=== PATIENT | female | born 1955 | race Caucasian/White ===

== ENCOUNTER → 2020-11-08 14:23 | Outpatient (POV) | payer MEDICARE, OTHER, SELFPAY | PROVIDERS: Visit Provider Dermatology | DX: Z00.00 Encounter for general adult medical examination without abnormal findings (principal) ==

== ENCOUNTER → 2020-11-15 10:19 | Outpatient (POV) | payer MEDICARE, OTHER, SELFPAY | PROVIDERS: Visit Provider Dermatology | DX: Z00.00 Encounter for general adult medical examination without abnormal findings (principal) ==

== ENCOUNTER 2023-04-27 14:42 | Emergency (ER) | payer MEDICARE, OTHER, SELFPAY ==
[2023-04-27 14:51] VITALS: BP 144/76; PULSE 75; RESP 18; TEMP 36.6; O2SAT 97; BMI 36.6
--- NOTE | 2023-04-27 14:58 | XR_ITS ---
PROCEDURE INFORMATION: Exam: XR Right Knee Exam date and time: 04/27/2023 2:55 PM Age: 68 years old Clinical indication: Injury or trauma; Other: Twisted heard pop; Sprain or strain; Patella or knee; Right; Additional info: Was playing basketball w grandson and heard a pop TECHNIQUE: Imaging protocol: Radiologic exam of the right knee. Views: 3 views. Total images: 3 COMPARISON: No relevant prior studies available. FINDINGS: Bones/joints: No evidence of acute fracture or dislocation. There are mild degenerative changes of the knee joint, predominantly involving the medial joint compartment. Soft tissues: Soft tissues are within normal limits. IMPRESSION: 1. No evidence of acute fracture or dislocation. 2. There are mild degenerative changes of the knee joint, predominantly involving the medial joint compartment.
[2023-04-27 15:13] VITALS: BP 144/76; PULSE 75; RESP 18; TEMP 36.6; O2SAT 97; BMI 36.8
--- NOTE | 2023-04-27 15:49 | EXP.UTC ---
Discharge Plan Disposition Patient Disposition: Home, Self-Care Condition: Good Prescriptions Prescriptions: No Action atorvastatin 20 mg tablet 20 mg PO DAILY lisinopril 20 mg tablet 20 mg PO DAILY alendronate 70 mg tablet 70 mg PO WEEKLY diclofenac sodium 75 mg tablet,delayed release (DR/EC) 75 mg PO DAILY montelukast 10 mg tablet 10 mg PO DAILY leflunomide 10 mg Tablet 10 mg PO DAILY Referrals Follow up/Referrals: Marta Vieira APRN [Primary Care Provider] - See instructions Activity Restrictions/Add. Instructions Additional Instructions/Restrictions: Weight bearing as tolerated rest Ice with cold pack for 20 minutes remove may repeat for comfort every hour Cy wrap for support and swelling no less in the shower. Be sure not too tight but not to lose either Elevate leg as much as possible to help reduce swelling and therefore pain If improving any do not need to follow-up you can bring begin exercising 2-3 weeks after injury. Follow-up immediately if new or worsening symptoms or no noticeable improvement over the next 3-5 days. call ortho follow up with pcp for more testing and work up Clinical Impressions Clinical Impression: Acute knee pain Instructions Patient Instructions: DI for Knee Pain Discharge ED Provider: Tiffanie ([facility])Katy [facility] [place], [place] HPI General Stated complaint: AO@home 04/27 RT foot pain Mode of Arrival: Ambulatory Source of Information: Patient Limitations: No Limitations Time Seen by Provider: 04/27/23 15:49 Description of Symptoms (Recalled from Triage Doc. by RN): Was playing basketball with her grandson. She went to push off to go get the ball and she heard and felt a pop. This happened today around 1230. HEENT Symptoms (Recalled from RN notes): No Resp Symptoms (Recalled from RN notes): No Skin Symptoms (Recalled from RN notes): No MS Symptoms (Recalled from RN notes): Yes Functional Status (Recalled from RN notes): n/a History of Present Illness Provider Complaint: 68 yr old female presents for rt knee pain. Pt states was playing basketball with her grandson. She went to push off to go get the ball and she heard and felt a pop in knee. This happened today around 1230. Related Data Home Medications Medication Instructions Recorded Confirmed alendronate 70 mg tablet 70 mg PO WEEKLY . 04/27/23 04/27/23 atorvastatin 20 mg tablet 20 mg PO DAILY . 04/27/23 04/27/23 diclofenac sodium 75 mg 75 mg PO DAILY . 04/27/23 04/27/23 tablet,delayed release leflunomide 10 mg tablet 10 mg PO DAILY RA 04/27/23 04/27/23 lisinopril 20 mg tablet 20 mg PO DAILY . 04/27/23 04/27/23 montelukast 10 mg tablet 10 mg PO DAILY . 04/27/23 04/27/23 Allergies Allergy/AdvReac Type Severity Reaction Status Date / Time No Known Allergies Allergy Verified 04/27/23 15:16 Worker's Comp Is this a Worker's Comp case?: No [facility] Disclaimer: The information contained in this section may have been updated after the patient was seen, as this information can be updated by other users. 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
[2023-04-27 16:19] VITALS: BP 144/76; PULSE 75; RESP 18; TEMP 36.6; O2SAT 97
== END 2023-04-27 16:18 | disposition home or self-care (01) ==
PROVIDERS: Emergency Provider Nurse Practitioner Family; PCP Nurse Practitioner Family
DX: M25.561 Pain in right knee (principal); X50.1XXA Overexertion from prolonged static or awkward postures, initial encounter; I10 Essential (primary) hypertension; E78.5 Hyperlipidemia, unspecified
CPT/HCPCS: 73562; 99204; 99212; G0463

== ENCOUNTER → 2023-05-20 12:37 | Outpatient (CLI) | payer MEDICARE, OTHER, SELFPAY ==
--- NOTE | 2023-05-20 12:42 | MR_ITS ---
FINAL REPORT CLINICAL HISTORY: LOW BACK PAIN, NO INJURY FINDINGS: Multiplanar MR imaging of the lumbar spine was performed without contrast. On the sagittal T2-weighted images, decreased signal is seen throughout. There is moderate loss of disc space height at L5-S1. The vertebral alignment is normal. There is no evidence of fracture. No bony mass is identified. The conus is seen at approximately the L1 level and has an unremarkable appearance. L1-2: There is no significant canal stenosis or neural foraminal narrowing. L2-3: There is no significant canal stenosis or neural foraminal narrowing. L3-4: Mild disc bulge with mild bilateral neural foraminal narrowing. L4-5: Moderate diffuse disc bulge with broad-based midline disc protrusion. There is moderate right and moderate to high-grade left neural foraminal narrowing. There is mild central canal stenosis. L5-S1: Diffuse disc bulge with endplate hypertrophy. There is moderate right and moderate to high-grade left neural foraminal narrowing. IMPRESSION: Diffuse changes of degenerative disc disease with moderate to high-grade left L4-5 and L5-S1 neural foraminal narrowing. Reviewed, Interpreted and Dictated by Newton Limon MD Transcribed by Blanca Mayer Authenticated and [facility]
== END ==
PROVIDERS: PCP Nurse Practitioner Family; Visit Provider Orthopaedic Surgery
DX: M54.50 Low back pain, unspecified (principal)
CPT/HCPCS: 72148; 76376

== ENCOUNTER 2023-05-27 09:00 | Outpatient (RCR) | payer MEDICARE, OTHER, SELFPAY | END 2023-06-28 10:25 | disposition home or self-care (01) | LOC: PT 09:00 | PROVIDERS: PCP Nurse Practitioner Family; Visit Provider Nurse Practitioner Family | DX: M25.561 Pain in right knee (principal) | CPT/HCPCS: 97010; 97014; 97035; 97110; 97163; 97530; G0283 ==

== ENCOUNTER 2023-10-30 08:00 | Outpatient (RCR) | payer MEDICARE, OTHER, SELFPAY | END 2023-11-28 09:55 | disposition home or self-care (01) | LOC: PT 08:00 | PROVIDERS: PCP Nurse Practitioner Family; Visit Provider Orthopaedic Surgery Adult Reconstructive Orthopaedic Surgery | DX: M25.561 Pain in right knee (principal); S83.241D Other tear of medial meniscus, current injury, right knee, subsequent encounter | CPT/HCPCS: 97010; 97014; 97035; 97110; 97163; 97530; G0283 ==

== ENCOUNTER 2024-10-30 14:06 | Observation (INO) | payer MEDICARE, OTHER, SELFPAY ==
[2024-10-30] VITALS (12 sets, daily range): BP systolic 110–147; BP diastolic 60–83; PULSE 70–85; RESP 12–20; TEMP 36.7; O2SAT 92–99; BMI 32.9
--- NOTE | 2024-10-30 14:10 | ECG_ITS ---
APPROVED REPORT Exam: Resting ECG HR:79 bpm ECG Measurements Heart Rate 79 AXES SD 149 P 72 QRSd 93 QRS -5 QT 390 T 71 QTc 425 Conclusion SINUS RHYTHM NORMAL ECG Electronically signed by : MARYELLEN MANDUJANO, 10/31/2024 17:27:22
--- NOTE | 2024-10-30 14:26 | ED_ITS ---
<Statement entered by Davie Garcia DO - 11/01/24 12:48> I discussed this patient in detail with the PA. Agree with plan. Patient was seen by PA only. Discharge Plan Disposition Patient Disposition: Admitted Condition: Fair Clinical Impressions Clinical Impression: Acute kidney injury superimposed on stage 3b chronic kidney disease Urinary tract infectious disease Qualifiers: Urinary tract infection type: site unspecified Hematuria presence: with hematuria Qualified Code(s): N39.0 - Urinary tract infection, site not specified Discharge ED Provider: Davie Garcia HPI General Chief Complaint: Chest Pain Stated Complaint: Chest Pain Time Seen by Provider: 10/30/24 14:26 Mode of Arrival: Ambulatory Source of Information: Patient Limitations: No Limitations Description of Symptoms (Recalled from ER Triage Doc. by RN): Patient reports increased shortness of breath and chest pressure for 3-4 days. States that she has also had some increased weakness. History of Present Illness HPI narrative: Patient presents for evaluation of chest plain along with other complaints. Patient gives a 4-day history of chest pressure that she describes as her bilateral neck, malaise, not feeling well but no specific shortness of breath fever chills hemoptysis hematochezia melena nausea vomiting or diarrhea. Patient has a history of hypertension hyperlipidemia and rheumatoid arthritis on a DMM drug that she cannot recall. Related Data Home Medications ?Medication ?Instructions ?Recorded ?Confirmed alendronate 70 mg tablet 70 mg PO WEEKLY . 04/27/23 04/27/23 atorvastatin 20 mg tablet 20 mg PO DAILY . 04/27/23 04/27/23 diclofenac sodium 75 mg 75 mg PO DAILY . 04/27/23 04/27/23 tablet,delayed release leflunomide 10 mg tablet 10 mg PO DAILY RA 04/27/23 04/27/23 lisinopril 20 mg tablet 20 mg PO DAILY . 04/27/23 04/27/23 montelukast 10 mg tablet 10 mg PO DAILY . 04/27/23 04/27/23 Allergies Allergy/AdvReac Type Severity Reaction Status Date / Time IV Contrast Allergy Anaphylaxis Uncoded 10/30/24 16:28 [facility] Disclaimer: The information contained in this section may have been updated after the patient was seen, as this information can be updated by other users. 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) Tubal ligation status Social History (Updated 04/27/23 @ 15:57 by [facility] LUMBER CHECKER) Smoking Status: Never smoker alcohol intake: never current occupational status: retired ROS Obtained: Yes Systems reviewed as appropriate & no additional complaints except as documented Physical Exam General General appearance: alert and in no apparent distress Respiratory Respiratory exam: Present normal lung sounds bilaterally Cardiovascular Cardiovascular exam: Present regular rate Neurological Exam Neurological exam: Present alert and oriented X3 HEART Score HEART Score HEART Score assessment performed?: No History (anamnesis): Slightly suspicious ECG: Non-specific disturbance Age: >65 years Risk factors: 3 or more risk factors Troponin: </= normal limit HEART Score: 5 Critical Care Critical Care Time Critical Care Time: No Medical Decision Making Medical Records Medical records reviewed: Yes I reviewed the patient's medical records. Ruben Inquiry Pt receiving controlled substance: No Vital Signs Vital Signs: 10/30/24 14:06 10/30/24 14:30 10/30/24 15:30 Temperature 98.0 F Temperature Source Oral Pulse Rate 74 70 Pulse Rate [Radial] 85 Respiratory Rate 20 12 Blood Pressure 110/66 113/60 Blood Pressure [Right Arm] 128/82 Blood Pressure Mean 87 77 Blood Pressure Mean [Right Arm] 97 Blood Pressure Source [Right Arm] Automatic Cuff Blood Pressure Position [Right Arm] Sitting 02 Sat by Pulse Oximetry 99 99 93 L Oxygen Delivery Method Room Air 10/30/24 16:00 10/30/24 16:31 10/30/24 17:00 Temperature Temperature Source Pulse Rate 70 82 77 Pulse Rate [Radial] Respiratory Rate 18 15 13 Blood Pressure 130/65 143/77 H 147/83 H Blood Pressure [Right Arm] Blood Pressure Mean 77 99 95 Blood Pressure Mean [Right Arm] Blood Pressure Source [Right Arm] Blood Pressure Position [Right Arm] 02 Sat by Pulse Oximetry 93 L 95 97 Oxygen Delivery Method 10/30/24 18:16 Temperature 98.0 F Temperature Source Oral Pulse Rate 74 Pulse Rate [Radial] Respiratory Rate 16 Blood Pressure 136/72 Blood Pressure [Right Arm] Blood Pressure Mean Blood Pressure Mean [Right Arm] Blood Pressure Source [Right Arm] Blood Pressure Position [Right Arm] 02 Sat by Pulse Oximetry Oxygen Delivery Method Room Air Lab Data Lab results reviewed: Yes I reviewed the patient's lab results. Labs: Lab Results 10/30/24 14:10: WBC 8.0, RBC 4.41, Hgb 13.1, Hct 37.8, MCV 85.6, MCH 29.7, MCHC 34.7, RDW 14.1, Plt Count 401, MPV 7.3 L, Neut % (Auto) 51.1, Lymph % (Auto) 20.4, Trimble % (Auto) 5.6, Eos % (Auto) 21.8 H, Baso % (Auto) 1.1, Neut # (Auto) 4.1, Lymph # (Auto) 1.6, Trimble # (Auto) 0.5, Eos # (Auto) 1.7 H, Baso # (Auto) 0.1, Sodium 140, Potassium 3.0 L, Chloride 107, Carbon Dioxide 24, Anion Gap 12.0, BUN 31 H, Creatinine 1.90 H, Estimated Creat Clear 35, Estimated GFR 26 L, Est GFR ( Amer) 32 L, Glucose 101 H, Calcium 9.1, Total Bilirubin 0.9, AST 25, ALT 15, Alkaline Phosphatase 79, Troponin I < 0.01, NT-Pro-B Natriuret Pep 107, Total Protein 7.8, Albumin 4.4, Globulin 3.4 H, Albumin/Globulin Ratio 1.3, HIV 1&2 Antibody Rapid Nonreactive 10/30/24 14:39: D-Dimer 2.20 H, NT-Pro-B Natriuret Pep 117, Procalcitonin 0.070 10/30/24 14:41: SARS-CoV-2 (PCR) Not detected, Influenza A Untype (PCR) Not detected, Influenza Type B (PCR) Not detected 10/30/24 17:33: Urine Color Yellow, Urine Appearance Clear, Urine pH 6.0, Ur Specific Kemp 1.015, Urine Protein Negative, Urine Glucose (UA) Negative, Urine Ketones Negative, Urine Blood Negative, Urine Nitrate Negative, Urine Bilirubin Negative, Urine Urobilinogen 0.2, Ur Leukocyte Esterase Trace, Urine RBC 3-5, Urine WBC 20-50, Ur Squamous Epith Cells 5-10, Ur Transition Epith Cell 3-5, Ur Renal Epithelial Cell 10-20, Urine Bacteria 2+ 10/30/24 18:00: Sodium 144, Potassium 3.2 L, Chloride 113 H, Carbon Dioxide 16 L , Anion Gap 18.2 H, BUN 33 H, Creatinine 2.00 H, Estimated Creat Clear 33, E stimated GFR 25 L, Est GFR ( Amer) 30 L, Glucose 104 H, Calcium 9.6, Troponin I < 0.01 10/30/24 14:10 10/30/24 18:00 Response Orders (Tests/Meds): ED MEDICATIONS Generic Name Dose Route Start Last Admin Trade Name Freq PRN Reason Stop Dose Admin Acetaminophen 650 mg 10/30/24 19:08 Acetaminophen 325mg Tab PO 11/29/24 19:07 Q4HP PRN Fever or Mild Pain (1-3) Enoxaparin Sodium 30 mg 10/31/24 09:00 Enoxaparin 40mg/0.4ml Syringe SUBCUT 11/30/24 08:59 DAILY SHANIQUE Sodium Chloride 1,000 mls @ 999 mls/hr 10/30/24 18:31 10/30/24 18:32 Sod Chlor 0.9% 1000ml Bag IV 10/30/24 19:31 999 mls/hr .Q1H1M ONE Administration Ceftriaxone Sodium 1 gm/ 50 mls @ 100 mls/hr 10/31/24 09:00 Sodium Chloride IV 11/10/24 08:59 Q24H SHANIQUE Ondansetron HCl 4 mg 10/30/24 19:08 Ondansetron 4mg/2ml Vial IV 11/29/24 19:07 Q8HP PRN Nausea Discontinued Medications Generic Name Dose Route Start Last Admin Trade Name Freq PRN Reason Stop Dose Admin Acetaminophen 1,000 mg 10/30/24 14:31 10/30/24 14:46 Acetaminophen 500mg Tab PO 10/30/24 14:32 1,000 mg ONCE ONE Administration Belladonna Alkaloids 60 ml 10/30/24 14:31 10/30/24 14:46 Belladonna Alkaloids 60 Ml Ml PO 10/30/24 14:32 60 ml ONCE ONE Administration Diphenhydramine HCl 50 mg 10/30/24 15:50 10/30/24 16:03 Diphenhydramine 50mg/Ml Vial IV 10/30/24 15:51 50 mg ONCE ONE Administration Potassium Chloride/Water 100 mls @ 50 mls/hr 10/30/24 15:03 10/30/24 18:25 Potassium Chloride 20meq/100ml Ivpb IV 10/30/24 19:02 50 mls/hr Q2H SHANIQUE Administration Sodium Chloride 1,000 mls @ 999 mls/hr 10/30/24 15:15 10/30/24 15:34 Sod Chlor 0.9% 1000ml Bag IV 10/30/24 16:15 999 mls/hr .Q1H1M ONE Administration Iopamidol 75 ml 10/30/24 17:27 10/30/24 17:27 Iopamidol-370 (76%);100ml Bottle IV 10/30/24 17:28 75 ml ONCE ONE Administration Ketorolac Tromethamine 15 mg 10/30/24 14:31 10/30/24 14:46 Ketorolac 30mg/Ml Vial IV 10/30/24 14:32 15 mg ONCE ONE Administration Methylprednisolone Sodium Succinate 125 mg 10/30/24 15:50 10/30/24 16:03 Methylprednisolone Sod Succ 125mg Vial IV 10/30/24 15:51 125 mg ONCE ONE Administration Ondansetron HCl 4 mg 10/30/24 14:31 10/30/24 14:46 Ondansetron 4mg Odt SL 10/30/24 14:32 4 mg ONCE ONE Administration Potassium Chloride 40 meq 10/30/24 15:03 10/30/24 15:09 Potassium Chloride 20meq Tab PO 10/30/24 15:04 40 meq ONCE ONE Administration Sodium Chloride 10 ml 10/30/24 17:27 10/30/24 17:27 Sodium Chloride 0.9% 10ml Syr (Rad Only) IV 10/30/24 17:28 10 ml ONCE ONE Administration Sodium Chloride 50 ml 10/30/24 17:27 10/30/24 17:27 0.9 % Sodium Chloride 50 Ml Vial IV 10/30/24 17:28 50 ml ONCE ONE Administration ORDERS Category Date Time Status CT angio chest PE protocol Stat Cat Scan 10/30/24 15:12 Completed Chest XR 2 view (NOT portable) [XR chest 2V] Stat Exams 10/30/24 14:32 Completed BNP [NT Pro Brain Natriuretic Pep.] Stat Lab 10/30/24 14:10 Completed BNP [NT Pro Brain Natriuretic Pep.] Stat Lab 10/30/24 14:39 Completed CBC w/Auto Diff [Complete Blood Count Auto Diff] Stat Lab 10/30/24 14:10 Completed CMP [Comprehensive Metabolic Panel] Stat Lab 10/30/24 14:10 Completed D-Dimer Stat Lab 10/30/24 14:39 Completed HIV (1&2) Antibody Rapid Stat Lab 10/30/24 14:10 Completed Hep C Ab with Reflex to RNA Stat Lab 10/30/24 14:10 Received Procalcitonin Stat Lab 10/30/24 14:39 Completed Rapid PCR Covid and Flu A/B Stat Lab 10/30/24 14:41 Completed Trop I [Troponin I] Stat Lab 10/30/24 14:10 Completed Troponin I Q3H Lab 10/30/24 18:00 Completed Troponin I Q3H Lab 10/30/24 20:45 Ordered UA [Urinalysis and Microscopic] Stat Lab 10/30/24 17:33 Completed Urine Culture Stat Micro 10/30/24 17:33 Received MDM Narrative Medical Decision Narrative: In summary patient is a 69-year-old female who presents to the emergency department for evaluation of chest pain malaise and feeling generally unwell and weak. Patient is hemodynamically stable upon arrival, afebrile. Physical exam is unremarkable and nonfocal including normal breath sounds normal heart sounds no dependent edema normal sinus rhythm on the bedside monitor satting at 99% on room air with no increased work of breathing or accessory muscle use. Differential diagnosis includes ACS versus PE versus viral or other infectious illness etc. Initial workup will be conducted with hematologic labs D-dimer plain film chest x-ray twelve-lead EKG urinalysis.. Initial interventions include Tylenol Toradol GI cocktail. Initial workup reviewed by me shows a normal white count with no neutrophilic shift and elevated D-dimer of 2.2 CMP is significant for initially a potassium of 3.0 a BUN of 31 creatinine 1.9 with a GFR of 26 with no known baseline initial troponin is less than 0.01 and procalcitonin is normal but detectable at 0.07 and urinalysis shows negative protein negative ketones negative nitrite and trace leukocyte Estrace on dipstick and microscopic exam shows 3-5 red cells 20-50 white cells 5-10 epithelial cells with 10-20 renal epithelial cells and 2+ bacteria indicating a more proximal process and her COVID and flu swabs are negative. My informed interpretation of her plain film chest x-ray shows a questionable nodule in the right upper lung field but no other acute processes and my informal interpretation of her CT PE protocol identifies no thrombus parenchymal consolidations bilaterally prior to radiology read. Upon repeat evaluation patient feels only slightly better after initial interventions. Given this I had an interactive discussion with hospital medicine outpatient management and patient will be admitted for further evaluation and care Of note I reviewed her laboratory results results from on 09/04/2024 show a potassium 3.7 creatinine 1.09 BUN of 27 estimated GFR 54.4
--- NOTE | 2024-10-30 14:32 | XR_ITS ---
FINAL REPORT CLINICAL HISTORY: Chest pain, shortness of breath FINDINGS: PA and lateral views of the chest are obtained. There is no prior exam for comparison. The cardiac and mediastinal silhouettes are within normal limits. The lungs are clear. There is no pleural effusion, pneumothorax, or acute osseous abnormality. IMPRESSION: No radiographic evidence of acute cardiac or pulmonary disease. Reviewed, Interpreted and Dictated by Nanda Delgadillo MD Transcribed by Jolly Jacques Authenticated and [facility]
[2024-10-30 14:44] LABS: Coronavirus 19, PCR Not Detected (NotDetected); Influenza A, PCR Not Detected (NotDetected); Influenza B, PCR Not Detected (NotDetected)
[2024-10-30 14:46] LABS: Basophils # 0.1 K/mm3 (0-0.2); Basophils % 1.1 % (0.1-2.0); Eosinophils # 1.7 K/mm3 (0.0-0.4); Eosinophils % 21.8 % (0.1-12.0); Hematocrit 37.8 % (37.0-47.0); Hemoglobin 13.1 g/dL (12.2-16.2); Lymphocytes # 1.6 K/mm3 (0.7-4.5); Lymphocytes % 20.4 % (10-50); Mean Corpuscular HGB Conc 34.7 g/dL (31.8-35.4); Mean Corpuscular Hemoglobin 29.7 pg (27.0-31.2); Mean Corpuscular Volume 85.6 fl (81-99); Mean Platelet Volume 7.3 fl (7.4-10.4); Monocytes # 0.5 K/mm3 (0.1-1.0); Monocytes % 5.6 % (1.7-9.3); Neutrophils # 4.1 K/mm3 (1.8-7.8); Neutrophils % 51.1 % (37.0-80.0); Platelet Count 401 K/mm3 (142-424); Red Blood Count 4.41 M/mm3 (4.20-5.40); Red Cell Distribution Width 14.1 % (11.5-17.5)
[2024-10-30] MEDS: KETOROLAC 30MG/ML VIAL 15 MG IV (14:46)
[2024-10-30] MEDS: ONDANSETRON 4MG ODT 4 MG SL (14:46)
[2024-10-30] MEDS: BELLADONNA ALKALOIDS 60 ML ML PO (14:46)
[2024-10-30] MEDS: ACETAMINOPHEN 500MG TAB 1000 MG PO (14:46)
[2024-10-30 14:57] LABS: Alanine Aminotransferase 15 U/L (12-78); Albumin Level 4.4 g/dl (3.5-5.0); Albumin/Globulin Ratio 1.3 (1.1-1.8); Alkaline Phosphatase 79 U/L (38-126); Aspartate Amino Transferase 25 U/L (14-36); Bilirubin,Total 0.9 mg/dl (0.2-1.3); Blood Urea Nitrogen 31 mg/dl (7-17); Calcium 9.1 mg/dl (8.4-10.2); Carbon Dioxide 24 mmol/L (22.0-30.0); Chloride 107 mmol/L (98-107); Creatinine Clearance Estimated 35 mL/min (50-200); Estimated Glomerular Filt Rate 26 ml/min (>60); GFR (African American) 32 ML/MIN (>60); Globulin 3.4 g/dL (1.3-3.2); Glucose 101 mg/dl (74-100); Sodium 140 mmol/L (136-145); Total Protein,Serum 7.8 g/dl (6.3-8.2)
[2024-10-30] MEDS: POTASSIUM CHLORIDE 20MEQ TAB 40 MEQ PO (15:09)
[2024-10-30 15:10] LABS: NT Pro Brain Natriuretic Pep. 107 pg/mL (0-125); Troponin I < 0.01 ng/ml (0.00-0.034)
--- NOTE | 2024-10-30 15:12 | CT_ITS ---
PROCEDURE INFORMATION: Exam: CTA Chest With Contrast Exam date and time: 10/30/2024 5:26 PM Age: 69 years old Clinical indication: Other: Chest pain; Additional info: Chest pain elevated d-dimer TECHNIQUE: Imaging protocol: Computed tomographic angiography of the chest with contrast. Exam focused on the arteries. 3D rendering (Not supervised by radiologist): MIP and/or 3D reconstructed images were created by the technologist. Radiation optimization: All CT scans at this facility use at least one of these dose optimization techniques: automated exposure control; mA and/or kV adjustment per patient size (includes targeted exams where dose is matched to clinical indication); or iterative reconstruction. Contrast material: ISO 370; Contrast volume: 70 ml; Contrast route: INTRAVENOUS (IV); COMPARISON: CR XR CHEST 2V 10/30/2024 2:54 PM FINDINGS: Pulmonary arteries: There is no evidence for clinically relevant pulmonary arterial filling defect. Tiny distal filling defects may be present but are of dubious clinical significance. Aorta: There is atherosclerotic disease of the visualized aorta and its major branch vessels. Teeth: There is dental amalgam which causes streak artifact and mildly limits evaluation of the oral cavity. Lungs: There are scattered calcified granulomas in the lungs which most likely reflect prior granulomatous disease. Scattered areas of bronchial wall thickening which are likely chronic inflammatory. A few areas of subpleural reticulation are noted, nonspecific. Parenchymal consolidations at the bases could be on the basis of atelectasis but underlying infection is not completely excluded. Pleural spaces: Unremarkable. No pneumothorax. No pleural effusion. Heart: Unremarkable. No cardiomegaly. No pericardial effusion. Lymph nodes: There are calcified mediastinal lymph nodes likely reflecting prior granulomatous disease. Gallbladder and biliary ducts: There is cholelithiasis within an otherwise normal gallbladder. Spleen: There are multiple calcifications in the spleen most likely reflects small granulomas. Bones/joints: There is diffuse degenerative disease of the visualized osseous structures. Soft tissues: Unremarkable. IMPRESSION: 1. Parenchymal consolidations at the bases could be on the basis of atelectasis but underlying infection is not completely excluded. 2. No evidence for clinically relevant pulmonary arterial filling defect.
[2024-10-30 15:30] LABS: HIV (1&2) Antibody Rapid NONREACTIVE (NONREACTIVE)
[2024-10-30] MEDS: KCl 20mEq/100ml 100 ML 50 MEQ IV ×2 (15:34→18:25)
[2024-10-30] MEDS: 0.9 % SODIUM CHLORIDE 1000ML 1,000 ML 999 ML IV ×2 (15:34→18:32)
[2024-10-30 15:36] LABS: NT Pro Brain Natriuretic Pep. 117 pg/mL (0-125)
[2024-10-30] MEDS: METHYLPREDNISOLONE SOD SUCC 125MG VIAL 125 MG IV (16:03)
[2024-10-30] MEDS: diphenhydrAMINE 50MG/ML VIAL 50 MG IV (16:03)
[2024-10-30] MEDS: 0.9 % SODIUM CHLORIDE 50 ML VIAL IV (17:27)
[2024-10-30] MEDS: IOPAMIDOL-370 (76%);100ML BOTTLE 75 ML IV (17:27)
[2024-10-30] MEDS: SODIUM CHLORIDE 0.9% 10ML SYR (RAD ONLY) 10 ML IV (17:27)
[2024-10-30 17:38] LABS: Appearance,Urine CLEAR (Clear); Bilirubin,Urine Negative (Negative); Blood, Urine Negative (Negative); Color,Urine YELLOW (Yellow); Glucose,Urine (UA) Negative (Negative); Ketones,Urine Negative (Negative); Leukocyte Esterase,Urine TRACE (Negative); Microscopic, Urine URINE MICROSCOPIC (MICROSCOPIC); Nitrate,Urine Negative (Negative); Protein,Urine Negative (Negative); Specific Gravity, Urine 1.015 (1.005-1.030); Urobilinogen,Urine 0.2 EU/dl (0.2)
[2024-10-30 18:06] LABS: WBC,Urine 20-50 #/hpf (0-3)
[2024-10-30 18:07] LABS: Bacteria,Urine 2+ /lpf
--- NOTE | 2024-10-30 18:16 | PC.NURSE ---
Called report to Fernanda Celis RN on Med/Surg
[2024-10-30 18:27] LABS: Chloride 113 mmol/L (98-107); Potassium 3.2 mmoL/L (3.5-5.1); Sodium 144 mmol/L (136-145)
[2024-10-30 18:30] LABS: Anion Gap 18.2 mEq/L (5-15); Carbon Dioxide 16 mmol/L (22.0-30.0)
[2024-10-30 18:31] LABS: Calcium 9.6 mg/dl (8.4-10.2); Glucose 104 mg/dl (74-100)
--- NOTE | 2024-10-30 18:33 | PC.NURSE ---
Per Nicholas Ceballos PAC- Dr. Lamb is reviewing the pt chart and will call him back before admission.
[2024-10-30 18:36] LABS: Blood Urea Nitrogen 33 mg/dl (7-17); Creatinine Clearance Estimated 33 mL/min (50-200); Estimated Glomerular Filt Rate 25 ml/min (>60); GFR (African American) 30 ML/MIN (>60)
[2024-10-30 18:44] LABS: Troponin I < 0.01 ng/ml (0.00-0.034)
--- NOTE | 2024-10-30 18:55 | PC.NURSE ---
Dr. Lamb now states he will accept the pt. I called Fernanda Celis RN and she states we will need to call report to night-shift nurse now despite this RN already having called report @ [phone]
--- NOTE | 2024-10-30 19:18 | PC.NURSE ---
Called report to Tianna Brown RN on Med/Surg
--- NOTE | 2024-10-30 19:57 | PC.NURSE ---
Patient arrived to room 209 by wheelchair at this time.
--- NOTE | 2024-10-30 20:50 | PC.NURSE ---
Dr Lamb was paged at this time to inform him that the patient's admission and home reconciliation was complete. An order for maintenance fluids (sodium chloride 0.45% (1000 mL) at 100 mL/hr) was also obtained.
[2024-10-30 21:12] LABS: Troponin I < 0.01 ng/ml (0.00-0.034)
[2024-10-30 21:29] LABS: Thyroid Stimulating Hormone 0.86 uIU/mL (0.465-4.68)
[2024-10-30] MEDS: SODIUM CHLORIDE 0.45 % 1,000 ML 100 ML IV (21:47)
--- NOTE | 2024-10-30 22:08 | EXP.HP ---
History of Present Illness *Admission Date: 10/30/24 *Reason for visit:: Generalized weakness, poor appetite, PAUL *History of present illness: Vicky Marie is a 69-year-old female with a medical history significant for rheumatoid arthritis, hypertension who presents with progressive generalized weakness, decreased oral intake, and recurrent UTIs over the past month. Patient states she had been treated with amoxicillin and Levaquin over the past 2 weeks for UTIs, with Levaquin ending last Saturday. She continues to have intermittent dysuria, polyuria, generalized weakness. Also endorses flulike symptoms with myalgias, mild productive cough over the past 4 days. Denies constipation/diarrhea, chest pain, fever/chills. Workup in the ED significant for UA highly suggestive of UTI, WBC 8.0, D-dimer 2.2, creatinine 1.9. Negative for COVID-19, flu. CTA suggestive of bibasilar opacities, but negative for PE. Case discussed with ED provider and decision was made to admit patient for worsening generalized weakness, decreased oral intake, PAUL, and possible community-acquired pneumonia. [facility] Disclaimer: The information contained in this section may have been updated after the patient was seen, as this information can be updated by other users. 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 , [employer]) High cholesterol Hypertension Rheumatoid arteritis Surgical History , [employer]) Tubal ligation status Family History (Updated 10/30/24 @ 20:28 by Mary Lopez RN) Mother Cancer Brother Leukemia Father Respiratory distress Social History (Updated 10/30/24 @ 20:27 by Mary Lopez RN) Smoking Status: Never smoker alcohol intake: never current occupational status: retired Other 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 Have you received the Flu Vaccine for this season: Yes Have you received the Pneumonia Vaccine: Yes Meds Home Medications and Allergies Home Medications ?Medication ?Instructions ?Recorded ?Confirmed ?Type alendronate 70 mg tablet 70 mg PO WEEKLY . 04/27/23 10/30/24 History atorvastatin 20 mg tablet 20 mg PO DAILY . 04/27/23 10/30/24 History diclofenac sodium 75 mg 75 mg PO DAILY . 04/27/23 10/30/24 History tablet,delayed release leflunomide 10 mg tablet 10 mg PO DAILY RA 04/27/23 10/30/24 History lisinopril 20 mg tablet 20 mg PO DAILY . 04/27/23 10/30/24 History montelukast 10 mg tablet 10 mg PO DAILY . 04/27/23 10/30/24 History New Prescriptions to Start Prescriptions: Allergies Allergy/AdvReac Type Severity Reaction Status Date / Time IV Contrast Allergy Anaphylaxis Uncoded 10/30/24 16:28 Exam Data for Last 24 hours Vital signs and Labs for Last 24 Hours: Temp Pulse Resp BP Pulse Ox O2 Del Method 98.0 F 73 13 135/69 98 Room Air 10/30/24 18:16 10/30/24 19:30 10/30/24 19:30 10/30/24 19:30 10/30/24 19:30 10/30/24 18:16 Laboratory Results - last 24 hr 10/30/24 14:10: WBC 8.0, RBC 4.41, Hgb 13.1, Hct 37.8, MCV 85.6, MCH 29.7, MCHC 34.7, RDW 14.1, Plt Count 401, MPV 7.3 L, Neut % (Auto) 51.1, Lymph % (Auto) 20.4, [place] % (Auto) 5.6, Eos % (Auto) 21.8 H, Baso % (Auto) 1.1, Neut # (Auto) 4.1, Lymph # (Auto) 1.6, [place] # (Auto) 0.5, Eos # (Auto) 1.7 H, Baso # (Auto) 0.1, Sodium 140, Potassium 3.0 L, Chloride 107, Carbon Dioxide 24, Anion Gap 12.0, BUN 31 H, Creatinine 1.90 H, Estimated Creat Clear 35, Estimated GFR 26 L, Est GFR ( Amer) 32 L, Glucose 101 H, Calcium 9.1, Total Bilirubin 0.9, AST 25, ALT 15, Alkaline Phosphatase 79, Troponin I < 0.01, NT-Pro-B Natriuret Pep 107, Total Protein 7.8, Albumin 4.4, Globulin 3.4 H, Albumin/Globulin Ratio 1.3, HIV 1&2 Antibody Rapid Nonreactive 10/30/24 14:39: D-Dimer 2.20 H, NT-Pro-B Natriuret Pep 117, Procalcitonin 0.070 10/30/24 14:41: SARS-CoV-2 (PCR) Not detected, Influenza A Untype (PCR) Not detected, Influenza Type B (PCR) Not detected 10/30/24 17:33: Urine Color Yellow, Urine Appearance Clear, Urine pH 6.0, Ur Specific [place] 1.015, Urine Protein Negative, Urine Glucose (UA) Negative, Urine Ketones Negative, Urine Blood Negative, Urine Nitrate Negative, Urine Bilirubin Negative, Urine Urobilinogen 0.2, Ur Leukocyte Esterase Trace, Urine RBC 3-5, Urine WBC 20-50, Ur Squamous Epith Cells 5-10, Ur Transition Epith Cell 3-5, Ur Renal Epithelial Cell 10-20, Urine Bacteria 2+ 10/30/24 18:00: Sodium 144, Potassium 3.2 L, Chloride 113 H, Carbon Dioxide 16 L, Anion Gap 18.2 H, BUN 33 H, Creatinine 2.00 H, Estimated Creat Clear 33, Estimated GFR 25 L, Est GFR ( Amer) 30 L, Glucose 104 H, Calcium 9.6, Troponin I < 0.01 10/30/24 20:25: Troponin I < 0.01, TSH 0.86 I & O for Last 24 hours: Intake & Output 10/27/24 10/28/24 10/29/24 10/30/24 23:59 23:59 23:59 23:59 Intake Total 1100 / 1100 Balance 1100 / 1100 Weight 81.647 kg Constitutional Constitutional: no acute distress *Routine HEENT Exam Head: Present normocephalic Eye: Present EOMI and PERRL ENT: Present mucous membranes moist *Routine Neck Exam Neck: Present supple; Absent lymphadenopathy *Routine Respiratory Exam Respiratory: Present CTA bilaterally *Routine Cardiovascular Exam Cardiovascular: Present RRR *Routine Abdominal Exam Abdominal: Present soft and normoactive bowel sounds; Absent tenderness *Routine Rectal Exam Rectal:: deferred *Routine Genitalia Exam Genitalia:: deferred *Routine Extremities Exam Extremities: Absent cyanosis, clubbing or edema *Routine Skin Exam Skin: Present warm; Absent rash *Routine Neurological Exam Neurological: Present alert and oriented X3 Assessment and Plan *Assessment and plan (1) Urinary tract infectious disease: Status: Acute Qualifiers: Hematuria presence: with hematuria Urinary tract infection type: site unspecified Qualified Code(s): N39.0 - Urinary tract infection, site not specified; R31.9 - Hematuria, unspecified Category: Medical Code(s): N39.0 - Urinary tract infection, site not specified (2) Acute kidney injury superimposed on stage 3b chronic kidney disease: Status: Acute Category: Medical Code(s): N17.9 - Acute kidney failure, unspecified; N18.32 - Chronic kidney disease, stage 3b (3) Community acquired pneumonia: Status: Acute Category: Medical Code(s): J18.9 - Pneumonia, unspecified organism (4) Generalized weakness: Status: Acute Category: Medical Code(s): R53.1 - Weakness (5) Rheumatoid arthritis: Status: Acute Category: Medical Code(s): M06.9 - Rheumatoid arthritis, unspecified (6) PAUL (acute kidney injury): Status: Acute Category: Medical Code(s): N17.9 - Acute kidney failure, unspecified Plan Vicky Marie is a 69-year-old female with a medical history significant for rheumatoid arthritis, hypertension who presents with progressive generalized weakness, decreased oral intake, and recurrent UTIs over the past month. Patient states she had been treated with amoxicillin and Levaquin over the past 2 weeks for UTIs, with Levaquin ending last Saturday. She continues to have intermittent dysuria, polyuria, generalized weakness. Also endorses flulike symptoms with myalgias, mild productive cough over the past 4 days. Denies constipation/diarrhea, chest pain, fever/chills. Workup in the ED significant for UA highly suggestive of UTI, WBC 8.0, D-dimer 2.2, creatinine 1.9. Negative for COVID-19, flu. CTA suggestive of bibasilar opacities, but negative for PE. Case discussed with ED provider and decision was made to admit patient for worsening generalized weakness, decreased oral intake, PAUL, and possible community-acquired pneumonia. #Generalized weakness #Decreased p.o. intake #Acute on recurrent UTI #Possible community-acquired pneumonia ? Symptoms have been ongoing for about a month, has been on 2 rounds of antibiotics including amoxicillin and Levaquin without complete alleviation of symptoms. ? Also endorses flulike symptoms with myalgia, mild productive cough over the past 4 days. ? CTA chest reveals bibasilar opacities. ? UA grossly abnormal suggesting UTI. ? Ceftriaxone, azithromycin day 1/5. ? Follow-up urine, blood cultures. ? Follow-up complete respiratory panel. ? Consider referral to urology for recurrent UTIs. ? PT/OT consulted, pending recommendations. #PAUL #High AGAP metabolic acidosis ? Initial creatinine at 1.9, bumped to 2.0 and AGAP 18.2 likely in the setting of post contrast nephropathy and Toradol given in the ED. ? Baseline creatinine 1.09 at on 09/04/2024 per ED provider. ? Likely prerenal hypovolemia in the setting of decreased oral intake. ? Continue NS at 100 mL/h. ? Follow-up renal function in the morning. #Elevated D-dimer ? CTA negative for PE. No signs of lower extremity DVTs. ? May be related to rheumatoid arthritis #Rheumatoid arthritis ? Resume home leflunomide. Hold home diclofenac given PAUL. ? No recent changes in medications to suggest contribution to recent symptoms. #Hypertension ? Hold home lisinopril given PAUL. Full code DVT prophylaxis: Lovenox 30 mg
[2024-10-30] MEDS: AZITHROMYCIN 500 MG in 0.9 % SODIUM CHLORIDE 250 ML 250 MG IV (23:43)
[2024-10-30 23:54] LABS: Adenovirus,PCR Not Detected (NotDetected); Coronovirus HKU1,PCR Not Detected (NotDetected)
[2024-10-30 23:55] LABS: Bordetella Pertussis Not Detected (NotDetected); Chlamydophila Pneumoniae, PCR Not Detected (NotDetected); Coronavirus 19, PCR Not Detected (NotDetected); Coronavirus 229E Not Detected (NotDetected); Coronavirus NL63 Not Detected (NotDetected); Coronavirus OC43 Not Detected (NotDetected); Human Metapneumovirus Not Detected (NotDetected); Influenza A, PCR Not Detected (NotDetected); Influenza AH1, 2009 Not Detected (NotDetected); Influenza AH1, PCR Not Detected (NotDetected); Influenza AH3,PCR Not Detected (NotDetected); Influenza B, PCR Not Detected (NotDetected); Mycoplasma Pneumoniae, PCR Not Detected (NotDetected); Parainfluenza 1, PCR Not Detected (NotDetected); Parainfluenza 2, PCR Not Detected (NotDetected); Parainfluenza 3, PCR Not Detected (NotDetected); Parainfluenza 4, PCR Not Detected (NotDetected); Respiratory Syncytial Virus Not Detected (NotDetected); Rhinovirus/Enterovirus Not Detected (NotDetected)
[2024-10-30] MEDS: SODIUM CHLORIDE 3% 15ML NEB 3 ML IH (23:59)
[2024-10-31 00:01] VITALS: PULSE 66; RESP 18
[2024-10-31 04:00] VITALS: BP 101/50; PULSE 56; RESP 18; TEMP 36.3; O2SAT 97; BMI 33.5
--- NOTE | 2024-10-31 04:45 | PC.NURSE ---
Ms Vicky Marie was newly admitted yesterday evening on behalf of the documented diagnoses as follows: hypokalemia and acute kidney injury. She also has a medical history of rheumatoid arthritis, hypertension, generalized weakness, and recurrent UTIs. Her chest CTA showed bi-basilar opacities suspicious for community-acquired pneumonia per report. She has been having a weak, nonproductive cough and complains of shortness of breath during moderate activity. The patient was observed to have eyes closed, respirations even and unlabored on room air, and no apparent distress throughout the night. She has been given antibiotics per JAN and currently has an infusion of 1/2 normal saline infusing at 100 mL/hr for fluid resuscitation. Patient ambulates independently to the bathroom and tolerates it fairly. Upon auscultation, patient's lung sounds were clear, S1/S2 heart sounds could be heard, and bowel sounds were active. She has not complained of any pain nor nausea this shift. Vital signs have been relatively stable this shift. At this time, the patient is resting in bed without further complaints. No acute changes noted thus far. Call light within reach.
[2024-10-31 06:42] LABS: Basophils % 0.4 % (0.1-2.0); Chloride 113 mmol/L (98-107); Eosinophils % 0.3 % (0.1-12.0); Hematocrit 33.6 % (37.0-47.0); Hemoglobin 11.8 g/dL (12.2-16.2); Lymphocytes # 0.7 K/mm3 (0.7-4.5); Lymphocytes % 10.6 % (10-50); Mean Corpuscular HGB Conc 35.1 g/dL (31.8-35.4); Mean Corpuscular Hemoglobin 30.6 pg (27.0-31.2); Mean Corpuscular Volume 87.1 fl (81-99); Mean Platelet Volume 7.2 fl (7.4-10.4); Monocytes # 0.1 K/mm3 (0.1-1.0); Neutrophils # 5.4 K/mm3 (1.8-7.8); Neutrophils % 86.8 % (37.0-80.0); Platelet Count 359 K/mm3 (142-424); Red Blood Count 3.85 M/mm3 (4.20-5.40); Red Cell Distribution Width 14.1 % (11.5-17.5); White Blood Count 6.3 K/mm3 (4.8-10.8)
[2024-10-31 06:43] LABS: Albumin Level 3.8 g/dl (3.5-5.0); Potassium 3.8 mmoL/L (3.5-5.1); Sodium 141 mmol/L (136-145)
[2024-10-31 06:45] LABS: Blood Urea Nitrogen 29 mg/dl (7-17); Creatinine Clearance Estimated 34 mL/min (50-200); Estimated Glomerular Filt Rate 25 ml/min (>60); GFR (African American) 30 ML/MIN (>60)
[2024-10-31 06:46] LABS: Alanine Aminotransferase 15 U/L (12-78); Albumin/Globulin Ratio 1.2 (1.1-1.8); Alkaline Phosphatase 64 U/L (38-126); Anion Gap 12.8 mEq/L (5-15); Aspartate Amino Transferase 22 U/L (14-36); Bilirubin,Total 0.5 mg/dl (0.2-1.3); Calcium 8.1 mg/dl (8.4-10.2); Carbon Dioxide 19 mmol/L (22.0-30.0); Globulin 3.1 g/dL (1.3-3.2); Glucose 137 mg/dl (74-100); Magnesium 2.6 mg/dl (1.6-2.3); Total Protein,Serum 6.9 g/dl (6.3-8.2)
[2024-10-31 06:48] LABS: MANUAL DIFFERENTIAL MANUAL DIFFERENTIAL (MANUAL DIFF)
[2024-10-31 08:00] VITALS: BP 115/49; PULSE 70; RESP 17; TEMP 36.5; O2SAT 96
[2024-10-31 08:33] LABS: Lymphocytes % 6 % (10-50); Monocytes % 1 % (2-9); Neutrophils % 90 % (42-76); Total Cells Counted 100
[2024-10-31 08:34] LABS: Platelet Estimate Normal; RBC Morphology Normal
[2024-10-31] MEDS: SODIUM CHLORIDE 0.45 % 1,000 ML 100 ML IV (09:14)
[2024-10-31] MEDS: ENOXAPARIN 40MG/0.4ML SYRINGE 40 MG SUBCUT (09:14)
[2024-10-31] MEDS: CEFTRIAXONE 1 GM 1 GM in 0.9 % SODIUM CHLORIDE 50 ML IV (09:14)
--- NOTE | 2024-10-31 09:38 | HMH.PHAINT1 ---
Pharmacy Intervention Comments: MEDICATION RECONCILIATION COMPLETED ON PATIENT USING EXTERNAL FILL HISTORY FROM PHARMACY. -GULSHAN DE LA CRUZ, DEBBIED
--- NOTE | 2024-10-31 14:18 | HMH.PTEV ---
Physical Therapy Evaluation Rehab PT IP Evaluation Start: 10/30/24 22:41 Freq: ONCE Status: Active Protocol: Document 10/31/24 13:30 PDESEROUX (Rec: 10/31/24 13:38 [email or web address] [id number]) Subjective/History History History Pt. is a 69 year old Female who presents to [facility] Inpatient w/ c/o RLE knee P!, recurring UTI, and generalized weakness. Pt. reports, my potassium was low. Pt. reports she's been feeling better and getting her strength back somewhat since she's been in the hospital. Pt. denies falls at home, however, vocalizes she is limited in ambulation secondary to RLE knee P!. Pt. reports having surgery on the RLE knee, but was told by her a Doctor that she was appropriate for a TKA. Pt. reports she lives w/ her and is IND. w/ ADLs. Pt. reports she is normally an active individual having to keep up with her grandchildren . PMH Hyperlipidemia, Hypertension, and Rheumatoid Arthritis. Subjective Subjective Pt. reports, my potassium was low. New diagnosis of cancer in past 12 No months? Rehab PT IP Eval Objective Appearance Patient Behavior Appropriate,Cooperative Patient Orientation Person,Place,Time,Age Difficulty following instructions none Speech Pattern Clear,Appropriate Ambulation Patient Able to Ambulate Yes Ambulation Observation IP General Gait Pattern Observation Antalgic Gait,Wide Based Gait Ambulation Distance (feet) 10 Ambulation Assistive Device None Ambulation Ability Contact Guard/Hand Hold Balance Ability to Arise Able, uses arms to help Sitting Balance Steady, safe Standing Balance Narrow stance w/o support Dynamic Sitting Balance Ability Normal Dynamic Standing Balance Ability Normal Transfers Bed Transfer Ability Contact Guard/Hand Hold Chair Transfer Ability Contact Guard/Hand Hold Sit to Stand Bed Transfer Ability Contact Guard/Hand Hold Sit to Stand Chair Transfer Ability Contact Guard/Hand Hold ROM RLE PT ROM Status WFL LLE PT ROM Status WFL MMT RLE PT MMT WFL Abnormal MMT Grade RLE knee MMT scores limited secondary to P! LLE PT MMT WFL Rehab PT IP prob,goals,plan Problems Date of Evaluation: 10/31/24 PT IP Problems Gait,Balance,Safety Rehab Potential Rehab Potential Good Equipment Needs Assistive Devices None / NA Plan PT Intervention Plan Gait,Balance,Safety, Therapeutic Exercise PT Plan Frequency BID Duration LOS Discharge Goals Bed Transfer Ability Supervision/Stand by Sit to Stand Chair Transfer Ability Supervision/Stand by Ambulation Assistive Device None Ambulation Distance (feet) 25 Discharge Plan PT Discharge Plan Once discharge from [facility], medically stable per MD, pt. is appropriate to be discharged to home environment w/ Home Health Physical Therapy to further promote functional strengthening and endurance training regarding generalized weakness and RLE knee P!. Eval Complexity Eval Charge Codes 20734 - Low Complexity PHYSICIAN CERTIFICATION: I certify the specified therapy services for Vicky Marie are required, authorized, and reviewed every 30 days.
[2024-10-31] MEDS: BUMETANIDE 1MG/4ML VIAL 1 MG IV (14:31)
[2024-10-31 16:00] VITALS: BP 105/60; PULSE 64; RESP 14; TEMP 36.6; O2SAT 99
--- NOTE | 2024-10-31 16:29 | P.PN_ITS ---
Subjective *Date: 10/31/24 *Time: 16:29 Interval history: Feeling little better, worked with therapy today. Still somewhat weak however. No nausea or vomiting. No chest pain. Shortness of breath improving. Intermittent burning with urination. Family at bedside. Medical Exam Vital signs and Labs for Last 24 Hours: Vital Signs Temp Pulse Pulse Resp BP BP Pulse Ox 10/31/24 14:50 10/31/24 13:00 10/31/24 11:00 10/31/24 09:00 10/31/24 08:00 10/31/24 08:00 97.7 F 70 17 115/49 L 96 10/31/24 07:00 10/31/24 05:00 10/31/24 04:00 97.4 F L 56 L 18 101/50 L 97 10/31/24 03:00 10/31/24 01:00 10/31/24 00:01 66 18 10/30/24 23:00 10/30/24 21:00 10/30/24 20:00 73 18 95 10/30/24 19:30 73 13 135/69 98 10/30/24 19:00 72 18 134/72 96 10/30/24 18:30 79 15 128/77 93 L 10/30/24 18:16 98.0 F 74 16 136/72 10/30/24 18:01 78 17 136/72 95 10/30/24 17:00 77 13 147/83 H 97 10/30/24 16:31 82 15 143/77 H 95 O2 Del Method 10/31/24 14:50 Room Air 10/31/24 13:00 Room Air 10/31/24 11:00 Room Air 10/31/24 09:00 Room Air 10/31/24 08:00 Room Air 10/31/24 08:00 Room Air 10/31/24 07:00 Room Air 10/31/24 05:00 Room Air 10/31/24 04:00 Room Air 10/31/24 03:00 Room Air 10/31/24 01:00 Room Air 10/31/24 00:01 10/30/24 23:00 Room Air 10/30/24 21:00 Room Air 10/30/24 20:00 Room Air 10/30/24 19:30 10/30/24 19:00 10/30/24 18:30 10/30/24 18:16 Room Air 10/30/24 18:01 10/30/24 17:00 10/30/24 16:31 Intake and Output 10/31/24 10/31/24 10/31/24 07:59 15:59 23:59 Intake Total 2782 / 4242 1460 / 4242 Output Total 0 / 0 0 / 0 Balance 2782 / 4242 1460 / 4242 Intake: Intake, Oral Amount 240 / 1700 1460 / 1700 Infusion Intake 2542 / 2542 0.9 % Sodium Chloride 1000ML 1, 2000 / 2000 000 ml @ 999 mls/hr IV .Q1H1M [facility] Rx#:[id number] Azithromycin 500 mg In 0.9 % 158 / 158 Sodium Chloride 250 ml @ 250 mls/hr IV Q24H [facility] Rx#: [id number] KCl 20mEq/100ml 100 ml @ 50 mls 200 / 200 /hr IV Q2H [facility] Rx#:[id number] Sodium Chloride 0.45 % 1,000 ml 184 / 184 @ 100 mls/hr IV .Q10H [facility] Rx#: [id number] Output: Output, Urine Amount 0 / 0 0 / 0 Other: Number of Unmeasured Voids 1 1 Weight 82.645 kg Patient Weight 10/31/24 23:59 Weight 82.645 kg Laboratory Results - last 24 hr 10/30/24 17:33: Urine Color Yellow, Urine Appearance Clear, Urine pH 6.0, Ur Specific [place] 1.015, Urine Protein Negative, Urine Glucose (UA) Negative, Urine Ketones Negative, Urine Blood Negative, Urine Nitrate Negative, Urine Bilirubin Negative, Urine Urobilinogen 0.2, Ur Leukocyte Esterase Trace, Urine RBC 3-5, Urine WBC 20-50, Ur Squamous Epith Cells 5-10, Ur Transition Epith Cell 3-5, Ur Renal Epithelial Cell 10-20, Urine Bacteria 2+ 10/30/24 18:00: Sodium 144, Potassium 3.2 L, Chloride 113 H, Carbon Dioxide 16 L , Anion Gap 18.2 H, BUN 33 H, Creatinine 2.00 H, Estimated Creat Clear 33, Estimated GFR 25 L, Est GFR ( Amer) 30 L, Glucose 104 H, Calcium 9.6, Troponin I < 0.01 10/30/24 20:25: Troponin I < 0.01, TSH 0.86 10/30/24 23:50: Chlamy pneumoniae PCR Not detected, Adenovirus (PCR) Not detected, B. pertussis DNA (PCR) Not detected, Coronavirus OC43 (PCR) Not detected, Coronavirus HKU1 (PCR) Not detected, Coronavirus 229E (PCR) Not detected, SARS-CoV-2 (PCR) Not detected, Coronavirus NL63 (PCR) Not detected, Human Metapneumovir PCR Not detected, Influenza A (H1) PCR Not detected, Influ A (H1N1/09) PCR Not detected, Influenza A (H3) PCR Not detected, Influenza Type A (PCR) Not detected, Influenza Type B (PCR) Not detected, M. pneumoniae (PCR) Not detected, Parainfluenza 1 (PCR) Not detected, Parainfluenza 2 (PCR) Not detected, Parainfluenza 3 (PCR) Not detected, Parainfluenza 4 (PCR) Not d etected, RSV (PCR) Not detected, Entero/Rhino (PCR) Not detected 10/31/24 06:00: WBC 6.3, RBC 3.85 L, Hgb 11.8 L, Hct 33.6 L, MCV 87.1, MCH 30.6, MCHC 35.1, RDW 14.1, Plt Count 359, MPV 7.2 L, Neut % (Auto) 86.8 H, Lymph % (Auto) 10.6, [place] % (Auto) 2.0, Eos % (Auto) 0.3, Baso % (Auto) 0.4, Neut # (Auto) 5.4, Lymph # (Auto) 0.7, [place] # (Auto) 0.1, Eos # (Auto) 0.0, Baso # (Auto) 0.0, Total Counted 100, Neutrophils % (Manual) 90 H, Band Neutrophils % 3.0, Lymphocytes % (Manual) 6 L, Monocytes % (Manual) 1 L, Platelet Estimate Normal, RBC Morphology Normal, Sodium 141, Potassium 3.8, Chloride 113 H, Carbon Dioxide 19 L, Anion Gap 12.8, BUN 29 H, Creatinine 2.00 H, Estimated Creat Clear 34, Estimated GFR 25 L, Est GFR ( Amer) 30 L, Glucose 137 H D, Calcium 8.1 L, Magnesium 2.6 H, Total Bilirubin 0.5, AST 22, ALT 15, Alkaline Phosphatase 64, Total Protein 6.9, Albumin 3.8 D, Globulin 3.1, Albumin/Globulin Ratio 1.2 I & O for Labs for Last 24 Hours: Intake & Output 10/28/24 10/29/24 10/30/24 10/31/24 23:59 23:59 23:59 23:59 Intake Total 1100 / 3882 4242 / 4242 Output Total 0 / 0 Balance 1100 / 3882 4242 / 4242 Weight 81.647 kg 82.645 kg Microbiology Reports for the Last 24 Hours: Microbiology 10/30/24 23:00 Sputum - Expectorated Sputum Gram Stain - Final Constitutional: Present no acute distress, obese and cooperative Head: Present atraumatic and normocephalic ENT: Present normal exam Respiratory: Present normal respiratory effort; Absent respiratory distress, rh onchi, wheezes or crackles Cardiac: Present Reg Rate and Rhythm GI: Present soft and normal bowel sounds; Absent distention or tenderness Extremities: Present normal inspection and full ROM Skin: Present intact; Absent erythema Neuro: Present Grossly Intact, alert, awake, oriented x 3 and moves all extremities Assessment and Plan *Assessment and plan (1) Urinary tract infectious disease: Status: Acute Qualifiers: Hematuria presence: with hematuria Urinary tract infection type: site unspecified Qualified Code(s): N39.0 - Urinary tract infection, site not specified; R31.9 - Hematuria, unspecified Category: Medical Code(s): N39.0 - Urinary tract infection, site not specified (2) Acute kidney injury superimposed on stage 3b chronic kidney disease: Status: Acute Category: Medical Code(s): N17.9 - Acute kidney failure, unspecified; N18.32 - Chronic kidney disease, stage 3b (3) Community acquired pneumonia: Status: Acute Category: Medical Code(s): J18.9 - Pneumonia, unspecified organism (4) Generalized weakness: Status: Acute Category: Medical Code(s): R53.1 - Weakness (5) Rheumatoid arthritis: Status: Acute Category: Medical Code(s): M06.9 - Rheumatoid arthritis, unspecified (6) PAUL (acute kidney injury): Status: Acute Category: Medical Code(s): N17.9 - Acute kidney failure, unspecified Plan Vicky Marie is a 69-year-old female with a medical history significant for rheumatoid arthritis, hypertension who presents with progressive generalized weakness, decreased oral intake, and recurrent UTIs over the past month. Patient states she had been treated with amoxicillin and Levaquin over the past 2 weeks for UTIs, with Levaquin ending last Saturday. She continues to have i ntermittent dysuria, polyuria, generalized weakness. Also endorses flulike symptoms with myalgias, mild productive cough over the past 4 days. Denies constipation/diarrhea, chest pain, fever/chills. Workup in the ED significant for UA highly suggestive of UTI, WBC 8.0, D-dimer 2.2, creatinine 1.9. Negative for COVID-19, flu. CTA suggestive of bibasilar opacities, but negative for PE. Case discussed with ED provider and decision was made to admit patient for worsening generalized weakness, decreased oral intake, PAUL, and possible community-acquired pneumonia. Feeling somewhat better this morning but still quite weak. Potassium showing improvement. No nausea or vomiting. Will monitor overnight, anticipate discharge tomorrow. #Generalized weakness #Decreased p.o. intake #Acute on recurrent UTI #Possible community-acquired pneumonia ? CTA chest reveals bibasilar opacities. Remained stable on room air. Goal sats greater 90%. ? UA grossly abnormal suggesting UTI. ? Ceftriaxone, azithromycin day 01/06. ? Follow-up urine, blood cultures. ? Respiratory panel negative ? Consider referral to urology for recurrent UTIs. ? PT/OT consulted, stable discharge home with home health. #PAUL #High AGAP metabolic acidosis ? Creatinine 1.9 on admission, 2.0 this morning. BUN 29. Potassium 3.8. Magnesium 2.6. Will administer 1 dose Bumex 1 mg IV today. ? Baseline creatinine 1.09 at on 09/04/2024 per ED provider. ? Likely prerenal hypovolemia in the setting of decreased oral intake. ?Repeat CBC, CMP, magnesium ordered for the morning #Elevated D-dimer ? CTA negative for PE. No signs of lower extremity DVTs. ? May be related to rheumatoid arthritis #Rheumatoid arthritis ? Resume home leflunomide. Hold home diclofenac given PAUL. ? No recent changes in medications to suggest contribution to recent symptoms. #Hypertension ? Hold home lisinopril given PAUL. Full code DVT prophylaxis: Lovenox 30 mg Regular diet
--- NOTE | 2024-10-31 17:20 | PC.NURSE ---
Pt alert and oriented and is currently sitting up in bed. Has c/o some nausea this shift. No other complaints. Pt has ambulated without difficulty in room and to BR. Voiding via BR. Pt diuresing. Fluids DC per MD. Call light within reach. Family at bedside.
[2024-10-31 20:00] VITALS: BP 134/58; PULSE 66; RESP 16; TEMP 36.4; O2SAT 97
[2024-10-31] MEDS: AZITHROMYCIN 500 MG in 0.9 % SODIUM CHLORIDE 250 ML 250 MG IV (20:11)
--- NOTE | 2024-10-31 20:20 | PC.NURSE ---
refused HS lipitor - stated she doesn't like statin's and doesn't trust those drugs because she has done her research - patient educated she has the right to refuse.
[2024-11-01 04:00] VITALS: BMI 33.2
--- NOTE | 2024-11-01 06:38 | PC.NURSE ---
no acute changes
[2024-11-01 06:55] LABS: Basophils # 0.1 K/mm3 (0-0.2); Basophils % 0.7 % (0.1-2.0); Eosinophils # 0.1 K/mm3 (0.0-0.4); Eosinophils % 0.9 % (0.1-12.0); Hematocrit 32.1 % (37.0-47.0); Hemoglobin 10.8 g/dL (12.2-16.2); Lymphocytes % 21.6 % (10-50); Mean Corpuscular HGB Conc 33.5 g/dL (31.8-35.4); Mean Corpuscular Hemoglobin 29.3 pg (27.0-31.2); Mean Corpuscular Volume 87.6 fl (81-99); Mean Platelet Volume 7.5 fl (7.4-10.4); Monocytes # 0.5 K/mm3 (0.1-1.0); Monocytes % 5.3 % (1.7-9.3); Neutrophils # 6.8 K/mm3 (1.8-7.8); Neutrophils % 71.6 % (37.0-80.0); Platelet Count 330 K/mm3 (142-424); Red Blood Count 3.67 M/mm3 (4.20-5.40); Red Cell Distribution Width 14.3 % (11.5-17.5); White Blood Count 9.4 K/mm3 (4.8-10.8)
[2024-11-01 07:05] LABS: Albumin Level 3.6 g/dl (3.5-5.0); Chloride 117 mmol/L (98-107); Potassium 3.3 mmoL/L (3.5-5.1); Sodium 145 mmol/L (136-145)
[2024-11-01 07:08] LABS: Alanine Aminotransferase 13 U/L (12-78); Albumin/Globulin Ratio 1.2 (1.1-1.8); Alkaline Phosphatase 58 U/L (38-126); Anion Gap 10.3 mEq/L (5-15); Aspartate Amino Transferase 20 U/L (14-36); Bilirubin,Total 0.4 mg/dl (0.2-1.3); Blood Urea Nitrogen 32 mg/dl (7-17); Carbon Dioxide 21 mmol/L (22.0-30.0); Creatinine Clearance Estimated 35 mL/min (50-200); Estimated Glomerular Filt Rate 26 ml/min (>60); GFR (African American) 32 ML/MIN (>60); Globulin 2.9 g/dL (1.3-3.2); Total Protein,Serum 6.5 g/dl (6.3-8.2)
[2024-11-01 07:09] LABS: Calcium 8.1 mg/dl (8.4-10.2); Glucose 95 mg/dl (74-100); Magnesium 2.6 mg/dl (1.6-2.3)
--- NOTE | 2024-11-01 07:46 | EXP.DC.SUM ---
General Admission date:: 10/30/24 Discharge date: 11/01/24 HPI HPI HPI: Vicky Marie is a 69-year-old female with a medical history significant for rheumatoid arthritis, hypertension who presents with progressive generalized weakness, decreased oral intake, and recurrent UTIs over the past month. Patient states she had been treated with amoxicillin and Levaquin over the past 2 weeks for UTIs, with Levaquin ending last Saturday. She continues to have intermittent dysuria, polyuria, generalized weakness. Also endorses flulike symptoms with myalgias, mild productive cough over the past 4 days. Denies constipation/diarrhea, chest pain, fever/chills. Workup in the ED significant for UA highly suggestive of UTI, WBC 8.0, D-dimer 2.2, creatinine 1.9. Negative for COVID-19, flu. CTA suggestive of bibasilar opacities, but negative for PE. Case discussed with ED provider and decision was made to admit patient for worsening generalized weakness, decreased oral intake, PAUL, and possible community-acquired pneumonia. Exam Data for Last 24 hours Vital signs and Labs for Last 24 Hours: Temp Pulse Resp BP Pulse Ox O2 Del Method 97.6 F 66 16 134/58 L 97 Room Air 10/31/24 20:00 10/31/24 20:00 10/31/24 20:00 10/31/24 20:00 10/31/24 20:00 11/01/24 06:29 Laboratory Results - last 24 hr 10/31/24 06:00: Total Counted 100, Neutrophils % (Manual) 90 H, Band Neutrophils % 3.0, Lymphocytes % (Manual) 6 L, Monocytes % (Manual) 1 L, Platelet Estimate Normal, RBC Morphology Normal 11/01/24 06:16: WBC 9.4 D, RBC 3.67 L, Hgb 10.8 L, Hct 32.1 L, MCV 87.6, MCH 29.3, MCHC 33.5, RDW 14.3, Plt Count 330, MPV 7.5, Neut % (Auto) 71.6, Lymph % (Auto) 21.6, [place] % (Auto) 5.3, Eos % (Auto) 0.9, Baso % (Auto) 0.7, Neut # (Auto) 6.8, Lymph # (Auto) 2.0, [place] # (Auto) 0.5, Eos # (Auto) 0.1, Baso # (Auto) 0.1, Sodium 145, Potassium 3.3 L, Chloride 117 H, Carbon Dioxide 21 L, Anion Gap 10.3, BUN 32 H, Creatinine 1.90 H, Estimated Creat Clear 35, Estimated GFR 26 L, Est GFR ( Amer) 32 L, Glucose 95, Calcium 8.1 L, Magnesium 2.6 H, Total Bilirubin 0.4, AST 20, ALT 13, Alkaline Phosphatase 58, Total Protein 6.5, Albumin 3.6, Globulin 2.9, Albumin/Globulin Ratio 1.2 I & O for Last 24 hours: Intake & Output 10/29/24 10/30/24 10/31/24 11/01/24 23:59 23:59 23:59 23:59 Intake Total 1100 / 3882 4712 / 5322 610 / 610 Output Total 1000 / 1000 450 / 450 Balance 1100 / 3882 3712 / 4322 160 / 160 Weight 81.647 kg 82.645 kg 81.964 kg Microbiology Reports for the Last 24 Hours: Microbiology 10/30/24 17:33 Urine,Clean Catch Urine Culture - Final No growth. 10/30/24 23:00 Sputum - Expectorated Sputum Gram Stain - Final 10/30/24 23:00 Sputum - Expectorated Sputum Sputum Culture - Preliminary 10/30/24 20:25 Blood Blood Culture - Preliminary NO GROWTH AFTER 24 HOURS 10/30/24 20:25 Blood Blood Culture - Preliminary NO GROWTH AFTER 24 HOURS Results Data Completed and Pending Labs on day of discharge: Labs from last 24 hours 11/01/24 10/31/24 06:16 06:00 WBC 9.4 D RBC 3.67 L Hgb 10.8 L Hct 32.1 L MCV 87.6 MCH 29.3 MCHC 33.5 RDW 14.3 Plt Count 330 MPV 7.5 Neut % (Auto) 71.6 Lymph % (Auto) 21.6 [place] % (Auto) 5.3 Eos % (Auto) 0.9 Baso % (Auto) 0.7 Neut # (Auto) 6.8 Lymph # (Auto) 2.0 [place] # (Auto) 0.5 Eos # (Auto) 0.1 Baso # (Auto) 0.1 Total Counted 100 Neutrophils % (Manual) 90 H Band Neutrophils % 3.0 Lymphocytes % (Manual) 6 L Monocytes % (Manual) 1 L Platelet Estimate Normal RBC Morphology Normal Sodium 145 Potassium 3.3 L Chloride 117 H Carbon Dioxide 21 L Anion Gap 10.3 BUN 32 H Creatinine 1.90 H Estimated Creat Clear 35 Estimated GFR 26 L Est GFR ( Amer) 32 L Glucose 95 Calcium 8.1 L Magnesium 2.6 H Total Bilirubin 0.4 AST 20 ALT 13 Alkaline Phosphatase 58 Total Protein 6.5 Albumin 3.6 Globulin 2.9 Albumin/Globulin Ratio 1.2 Preliminary micro results at discharge 10/30/24 23:00 Sputum Culture - Preliminary Sputum - Expectorated Sputum 10/30/24 20:25 Blood Culture - Preliminary Blood NO GROWTH AFTER 24 HOURS 10/30/24 20:25 Blood Culture - Preliminary Blood NO GROWTH AFTER 24 HOURS DS: Diagnosis Discharge Diagnosis (1) Urinary tract infectious disease: Status: Acute Code(s): N39.0 - Urinary tract infection, site not specified Qualifiers: Hematuria presence: with hematuria Urinary tract infection type: site unspecified Qualified Code(s): N39.0 - Urinary tract infection, site not specified; R31.9 - Hematuria, unspecified (2) Acute kidney injury superimposed on stage 3b chronic kidney disease: Status: Acute Code(s): N17.9 - Acute kidney failure, unspecified; N18.32 - Chronic kidney disease, stage 3b (3) Community acquired pneumonia: Status: Acute Code(s): J18.9 - Pneumonia, unspecified organism (4) Generalized weakness: Status: Acute Code(s): R53.1 - Weakness (5) Rheumatoid arthritis: Status: Acute Code(s): M06.9 - Rheumatoid arthritis, unspecified (6) PAUL (acute kidney injury): Status: Acute Code(s): N17.9 - Acute kidney failure, unspecified Meds Home Medications and Allergies Home Medications ?Medication ?Instructions ?Recorded ?Confirmed ?Type alendronate 70 mg tablet 70 mg PO WEEKLY 04/27/23 10/30/24 History leflunomide 10 mg tablet 10 mg PO DAILY 04/27/23 10/30/24 History montelukast 10 mg tablet 10 mg PO PM 04/27/23 10/31/24 History lisinopril 20 1 tab PO DAILY 11/30/24 11/30/24 History mg-hydrochlorothiazide 25 mg tablet potassium chloride 20 mEq 20 meq PO BID 10 days #20 tabs 11/01/24 Rx tablet,extended release(part/cryst) (Klor-Con M) New Prescriptions to Start Prescriptions: potassium chloride [Klor-Con M20] Kobi Malone Allergies Allergy/AdvReac Type Severity Reaction Status Date / Time Iodinated Contrast Media Allergy Severe Anaphylaxis Verified 10/31/24 07:44 Discharge Plan Disposition Patient Disposition: Home, Self-Care Condition: Fair Follow up Plan Follow up with: Marta Vieira APRN [Primary Care Provider] - Enter time for follow up Prescriptions/Medication Reconciliation: New potassium chloride [Klor-Con M20] 20 mEq Tablet,Er Particles/Crystals 20 meq PO BID 10 Days Qty: 20 0RF Continued alendronate 70 mg tablet 70 mg PO WEEKLY montelukast 10 mg tablet 10 mg PO PM leflunomide 10 mg Tablet 10 mg PO DAILY Held lisinopril-hydrochlorothiazide 20-25 mg tablet 1 tab PO DAILY Hold Instructions: pending follow-up with PCP Problem Reconciliation Problems Reviewed?: Yes Patient Discharge Instructions ACTIVITY: Continue current activity DIET: continue same diet Patient Instructions: Acute Kidney Injury, DI for Hypokalemia Print Language: Burmese Providers Primary Care Provider: Marta Vieira Admit Provider: Timothy Lamb Attending Provider: Timothy Lamb
[2024-11-01 08:00] VITALS: BP 119/57; PULSE 67; RESP 18; TEMP 36.6; O2SAT 98
[2024-11-01] MEDS: POTASSIUM CHLORIDE 20MEQ TAB 40 MEQ PO (08:40)
[2024-11-01] MEDS: CEFTRIAXONE 1 GM 1 GM in 0.9 % SODIUM CHLORIDE 50 ML IV (08:40)
[2024-11-01] MEDS: ENOXAPARIN 40MG/0.4ML SYRINGE 40 MG SUBCUT (08:40)
[2024-11-01] MEDS: FAMOTIDINE 20MG TABLET 20 MG PO (08:40)
[2024-11-01 09:24] LABS: HCV Ab Non Reactive (Non Reactive)
[2024-11-01] MEDS: BUMETANIDE 1 MG TABLET PO (11:01)
--- NOTE | 2024-11-02 11:27 | SW/DCPLANNER ---
Spoke with patient on the phone. Patient stated that she is doing pretty good. Patient stated that she was able to get her medicine filled and that she is going to make an follow up appoinment with her primary care provider today. Patient stated that she has no concerns or questions at this time. Elle Madden
== END 2024-11-01 11:08 | disposition home or self-care (01) ==
LOC: ER 14:25 → 2ND 19:23
PROVIDERS: Physician Assistant; Admitting Provider Student in an Organized Health Care Education/Training Program; Emergency Provider Student in an Organized Health Care Education/Training Program; PCP Nurse Practitioner Family; Visit Provider Student in an Organized Health Care Education/Training Program
DX: N39.0 Urinary tract infection, site not specified (principal); R31.9 Hematuria, unspecified; I12.9 Hypertensive chronic kidney disease with stage 1 through stage 4 chronic kidney disease, or unspecified chronic kidney disease; N17.9 Acute kidney failure, unspecified; N18.32 Chronic kidney disease, stage 3b; J18.9 Pneumonia, unspecified organism; R53.1 Weakness; M06.9 Rheumatoid arthritis, unspecified; Z79.899 Other long term (current) drug therapy
CPT/HCPCS: 36415; 71046; 71275; 80048; 80053; 81001; 83735; 83880; 84145; 84443; 84484; 85007; 85025; 85378; 86803; 87040; 87070; 87086; 87205; 87389; 87633; 87636; 93005; 97161; 99285; G0378; J0456; J0696; J1200; J1650; J1885; J1939; J2919; J7030; J7050; Q0162; Q9967

== ENCOUNTER 2025-01-21 10:59 | Emergency (ER) | payer MEDICARE, OTHER, SELFPAY ==
[2025-01-21] VITALS (9 sets, daily range): BP systolic 107–141; BP diastolic 58–72; PULSE 71–83; RESP 16–18; TEMP 36.7–36.8; O2SAT 94–99; BMI 32.9
[2025-01-21 11:09] LABS: Coronavirus 19, PCR Not Detected (NotDetected); Influenza B, PCR Not Detected (NotDetected)
--- NOTE | 2025-01-21 11:09 | PC.NURSE ---
covid/flu swab sent to lab
[2025-01-21 11:44] LABS: Influenza A, PCR Detected (NotDetected)
[2025-01-21] MEDS: IPRATROPIUM/ALBUTEROL 3 ML NEB IH (12:09)
[2025-01-21] MEDS: LACTATED RINGERS 1000ML 500 ML 999 ML IV (12:09)
[2025-01-21 12:13] LABS: Basophils % 0.9 % (0.1-2.0); Eosinophils # 0.3 K/mm3 (0.0-0.4); Eosinophils % 9.2 % (0.1-12.0); Hematocrit 38.2 % (37.0-47.0); Hemoglobin 13.3 g/dL (12.2-16.2); Lymphocytes # 0.9 K/mm3 (0.7-4.5); Lymphocytes % 28.1 % (10-50); Mean Corpuscular HGB Conc 34.8 g/dL (31.8-35.4); Mean Corpuscular Hemoglobin 29.4 pg (27.0-31.2); Mean Corpuscular Volume 84.3 fl (81-99); Mean Platelet Volume 9.4 fl (7.4-10.4); Monocytes # 0.4 K/mm3 (0.1-1.0); Monocytes % 13.1 % (1.7-9.3); Neutrophils # 1.6 K/mm3 (1.8-7.8); Neutrophils % 48.4 % (37.0-80.0); Platelet Count 230 K/mm3 (142-424); Red Blood Count 4.53 M/mm3 (4.20-5.40); White Blood Count 3.3 K/mm3 (4.8-10.8)
[2025-01-21 12:17] LABS: Chloride 108 mmol/L (98-107)
[2025-01-21 12:18] LABS: Albumin Level 4.3 g/dl (3.5-5.0); Potassium 3.1 mmoL/L (3.5-5.1); Sodium 136 mmol/L (136-145)
[2025-01-21 12:20] LABS: Alanine Aminotransferase 51 U/L (12-78); Anion Gap 15.1 mEq/L (5-15); Aspartate Amino Transferase 76 U/L (14-36); Blood Urea Nitrogen 22 mg/dl (7-17); Carbon Dioxide 16 mmol/L (22.0-30.0); Creatinine Clearance Estimated 44 mL/min (50-200); Estimated Glomerular Filt Rate 34 ml/min (>60); GFR (African American) 41 ML/MIN (>60)
[2025-01-21 12:21] LABS: Albumin/Globulin Ratio 1.3 (1.1-1.8); Alkaline Phosphatase 67 U/L (38-126); Bilirubin,Total 0.5 mg/dl (0.2-1.3); Calcium 8.7 mg/dl (8.4-10.2); Globulin 3.4 g/dL (1.3-3.2); Glucose 107 mg/dl (74-100); Total Protein,Serum 7.7 g/dl (6.3-8.2)
--- NOTE | 2025-01-21 13:15 | HMH.EDGENADL ---
Discharge Plan Disposition Patient Disposition: Home, Self-Care Condition: Fair Prescriptions Prescriptions: New oseltamivir [Tamiflu] 75 mg capsule 75 mg PO BID 5 Days Qty: 10 0RF ondansetron 4 mg tablet,disintegrating 4 mg PO Q6H PRN (Reason: nausea and vomiting) Qty: 20 0RF No Action alendronate 70 mg tablet 70 mg PO WEEKLY montelukast 10 mg tablet 10 mg PO PM leflunomide 10 mg Tablet 10 mg PO DAILY potassium chloride [Klor-Con M20] 20 mEq Tablet,Er Particles/Crystals 20 meq PO BID 10 Days Qty: 20 0RF Referrals Follow up/Referrals: Marta Vieira APRN [Primary Care Provider] - See instructions Activity Restrictions/Add. Instructions Additional Instructions/Restrictions: Follow-up with your primary care provider tomorrow at 10:15 for reevaluation. You were prescribed Tamiflu and you will need to take this medication twice a day for the next 5 days. Take Tylenol and ibuprofen every 6 hours as needed for fever or pain. Use the Zofran every 4 hours as needed for nausea, vomiting and to encourage fluid intake. Please return to ED if your symptoms worsen, change in location, change in severity, new symptoms develop or if you become concerned for your health. Clinical Impressions Clinical Impression: Influenza A, Decreased oral intake Print Language Print Language: Greenlandic Discharge ED Provider: Reshma Sr General Adult HPI General Chief complaint: Upper Respiratory Infection Stated complaint: soa,body aches, no appetite, diarrhea Time Seen by Provider: 01/21/25 11:55 Mode of Arrival: Wheelchair Source of Information: Patient Limitations: No Limitations Description of Symptoms (Recalled from ER Triage Doc. by RN): c/o diarrhea,vomiting,chest cold,dizziness,soa, no appetite, ear pressure, some pain across the middle of her back since Saturday. Fever that went away 3 days ago. History of Present Illness HPI narrative: Vicky Marie is a 70-year-old female presenting with multiple complaints. Patient's symptoms started a week ago Saturday. Patient has had fever, chills, decreased appetite, ear pressure, cough, dizziness and shortness of air. Patient has a history of rheumatoid arthritis but does not chronically take steroids. She states she took a few steroid doses to help with the feeling of chest inflammation. Patient otherwise has not been evaluated prior to today. Related Data Home Medications ?Medication ?Instructions ?Recorded ?Confirmed alendronate 70 mg tablet 70 mg PO WEEKLY 04/27/23 01/21/25 leflunomide 10 mg tablet 10 mg PO DAILY 04/27/23 01/21/25 montelukast 10 mg tablet 10 mg PO PM 04/27/23 01/21/25 Previous Rx's ?Medication ?Instructions ?Recorded potassium chloride 20 mEq 20 meq PO BID 10 days #20 tabs 11/01/24 tablet,extended release(part/cryst) (Klor-Con M) ondansetron 4 mg disintegrating 4 mg PO Q6H PRN nausea and 01/21/25 tablet vomiting #20 tabs oseltamivir 75 mg capsule (Tamiflu) 75 mg PO BID 5 days #10 caps 01/21/25 Allergies Allergy/AdvReac Type Severity Reaction Status Date / Time Iodinated Contrast Media Allergy Severe Anaphylaxis Verified 10/31/24 07:44 [facility] Disclaimer: The information contained in this section may have been updated after the patient was seen, as this information can be updated by other users. 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) Tubal ligation status Family History (Updated 10/30/24 @ 20:28 by Mary Lopez RN) Mother Cancer Brother Leukemia Father Respiratory distress Social History (Updated 10/30/24 @ 20:27 by Mary Lopez RN) Smoking Status: Never smoker alcohol intake: never current occupational status: retired Travel in the last 8 weeks: None Have you lived/traveled outside [place] in past 30 days?: No Contact w/someone who lives/traveled outside [place] past 30 days?: No Exposure to someone with infectious disease in past 14 days?: No Do you have a fever (greater than 100.4 F or 38 C)?: No Have you tested positive for COVID-19: No Exposed to someone with COVID-19 in past 14 days?: No Do you have a sore throat?: No Do you have a cough?: No Do you have any weakness?: No Do you have any diarrhea?: No Are you experiencing any unusual bleeding?: No Do you have any muscle aches/pain?: No Do you have any abdominal pain?: No Are you experiencing loss of taste or smell?: No Other 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 Have you received the Flu Vaccine for this season: No Have you received the Pneumonia Vaccine: No ROS Obtained: Yes All systems reviewed & no additional complaints except as documented Physical Exam General General appearance: alert and in no apparent distress Head Head exam: atraumatic Eye Eye exam: Present EOMI; Absent scleral icterus Neck Neck exam: Present full ROM Chest Chest inspection: Present normal inspection Respiratory Respiratory exam: Present wheezes Cardiovascular Cardiovascular exam: Present regular rate and normal rhythm Abdominal Exam Abdominal exam: Present soft; Absent distention or tenderness Extremities Exam Extremities exam: Present full ROM; Absent tenderness or edema Back Exam Back exam: Present full ROM Neurological Exam Neurological exam: Present alert and oriented X3 Psychiatric Psychiatric exam: Present normal mood Skin Skin exam: Present warm and dry Medical Decision Making Medical Records Medical records reviewed: Yes I reviewed the patient's medical records. Screening: Per USPSTF and CDC recommendations, given the prevalence of disease in our region, it is our hospital?s policy to screen for HIV and viral Hepatitis for all patients aged 18 and over and those with ongoing risk factors. Ruben Inquiry Pt receiving controlled substance: No Ruben was queried for this patient: No Vital Signs: 01/21/25 11:00 01/21/25 11:45 01/21/25 12:13 Temperature 98.3 F Temperature Source Oral Pulse Rate 73 74 Pulse Rate [Left Radial] 83 Respiratory Rate 18 Blood Pressure 117/70 126/62 Blood Pressure [Right Arm] 116/58 L Blood Pressure Mean [Right Arm] 77 02 Sat by Pulse Oximetry 95 96 98 Oxygen Delivery Method Room Air Room Air Room Air 01/21/25 12:15 01/21/25 12:30 01/21/25 12:45 Temperature Temperature Source Pulse Rate 71 71 74 Pulse Rate [Left Radial] Respiratory Rate Blood Pressure 107/68 L 127/60 129/61 Blood Pressure [Right Arm] Blood Pressure Mean [Right Arm] 02 Sat by Pulse Oximetry 99 98 95 Oxygen Delivery Method Room Air Room Air 01/21/25 13:00 01/21/25 13:30 01/21/25 14:14 Temperature 98.1 F Temperature Source Pulse Rate 76 72 71 Pulse Rate [Left Radial] Respiratory Rate 16 Blood Pressure 141/67 H 128/68 135/72 Blood Pressure [Right Arm] Blood Pressure Mean [Right Arm] 02 Sat by Pulse Oximetry 95 94 L Oxygen Delivery Method Room Air Lab Data Lab results reviewed: Yes I reviewed the patient's lab results. Lab Results 01/21/25 11:03: SARS-CoV-2 (PCR) Not detected, Influenza A Untype (PCR) Detected A, Influenza Type B (PCR) Not detected 01/21/25 12:05: WBC 3.3 L, RBC 4.53, Hgb 13.3, Hct 38.2, MCV 84.3, MCH 29.4, MCHC 34.8, RDW 14.0, Plt Count 230, MPV 9.4, Neut % (Auto) 48.4, Lymph % (Auto) 28.1, [place] % (Auto) 13.1 H, Eos % (Auto) 9.2, Baso % (Auto) 0.9, Neut # (Auto) 1.6 L, Lymph # (Auto) 0.9, [place] # (Auto) 0.4, Eos # (Auto) 0.3, Baso # (Auto) 0.0, Sodium 136, Potassium 3.1 L, Chloride 108 H, Carbon Dioxide 16 L, Anion Gap 15.1 H, BUN 22 H, Creatinine 1.50 H, Estimated Creat Clear 44, Estimated GFR 34 L, Est GFR ( Amer) 41 L, Glucose 107 H, Calcium 8.7, Total Bilirubin 0.5, AST 76 H, ALT 51, Alkaline Phosphatase 67, Total Protein 7.7, Albumin 4.3, Globulin 3.4 H, Albumin/Globulin Ratio 1.3 01/21/25 12:05 01/21/25 12:05 Orders (Tests/Meds): ED MEDICATIONS Discontinued Medications Generic Name Dose Route Start Last Admin Trade Name Freq PRN Reason Stop Dose Admin Albuterol/Ipratropium 3 ml 01/21/25 11:55 01/21/25 12:09 Ipratropium/Albuterol 3 Ml Neb IH 01/21/25 11:56 3 ml ONCE ONE Administration Lactated Ringer's 500 mls @ 999 mls/hr 01/21/25 11:55 01/21/25 12:09 Lactated Ringer's 1000 Ml Bag IV 01/21/25 12:25 999 mls/hr .Q31M ONE Administration ORDERS Category Date Time Status CXR --portable [XR chest portable] Stat Exams 01/21/25 13:30 Completed CBC w/Auto Diff [Complete Blood Count Auto Diff] Stat Lab 01/21/25 12:05 Completed CMP [Comprehensive Metabolic Panel] Stat Lab 01/21/25 12:05 Completed Rapid PCR Covid and Flu A/B Stat Lab 01/21/25 11:03 Completed Medical Decision Narrative: In summary, this is a 70-year-old female presenting with multiple complaints. Differential diagnosis includes was not limited to, influenza, COVID, viral URI, pneumonia, sepsis, bronchitis, among others. Patient's symptoms consistent with viral URI. Patient evaluated with respiratory swab, CBC and CMP due to poor oral intake and week of symptoms. Patient's lungs have slight expiratory wheezing bilaterally, patient treated with IV fluids and DuoNeb. Patient's labs significant for positive influenza A. Leukopenia to 3.3, slight hypokalemia. Patient treated with DuoNeb and 1 L IV fluids. Patient feeling slightly improved after IV fluid administration. Patient having increased coughing but decreased wheezing. Patient's labs mostly at baseline. I discussed the patient with the hospitalist who recommended getting the patient in with her PCP tomorrow after initiation of Tamiflu. I contacted the patient's PCP who was able to schedule the patient an appointment at [phone] tomorrow morning. I discussed with the patient and her who are in agreement with this plan. Patient prescribed Tamiflu as well as Zofran to encourage continued fluid intake. Patient given return precautions. Patient discharged in stable conditions. Reshma Sr MD Critical Care Critical Care Time Critical Care Time: No
--- NOTE | 2025-01-21 13:30 | XR_ITS ---
FINAL REPORT CLINICAL HISTORY: flu, wheeze COMPARISON: 10/30/2024 FINDINGS: A portable view of the chest was obtained. Cardiac and mediastinal silhouettes are within normal limits. There is no interval change in the bilateral interstitial opacities since the prior exam of 10/30/2024. There is no pleural effusion or pneumothorax. IMPRESSION: No acute process on this portable exam, no change in bilateral interstitial opacities. Reviewed, Interpreted and Dictated by Nanda Delgadillo MD Transcribed by Adriana Altman Authenticated and [facility]
== END 2025-01-21 14:17 | disposition home or self-care (01) ==
PROVIDERS: Emergency Provider Student in an Organized Health Care Education/Training Program; PCP Nurse Practitioner Family
DX: J10.1 Influenza due to other identified influenza virus with other respiratory manifestations (principal); R06.02 Shortness of breath; R42 Dizziness and giddiness; R11.10 Vomiting, unspecified; R19.7 Diarrhea, unspecified; R63.8 Other symptoms and signs concerning food and fluid intake; M54.9 Dorsalgia, unspecified
CPT/HCPCS: 71045; 80053; 85025; 87636; 96360; 99283; J7120; J7620